=== PATIENT | female | born 1990 | race African-American/Black ===

== ENCOUNTER 2016-07-28 17:42 | Emergency (ER) | payer OTHER ==
[~2016-07-28] VITALS: Ht 172.7 cm; Wt 147.4 kg
[~2016-07-28 17:42] MED LIST: HYDROCORTISONE28 G1 TP; Ibuprofen PO; NIFE30TA2 PO; Oxycodone Hcl/Acetaminophen PO; PRED50TA PO
[2016-07-28 19:44] LABS: BILIRUBIN,URINE NEGATIVE (NEG); GLUCOSE,URINE NEGATIVE (NEG); NITRITE,URINE NEGATIVE (NEG); PH,URINE 6.5; PROTEIN,URINE NEGATIVE (NEG-TRACE)
[2016-07-28 19:57] LABS: BACTERIA,URINE MODERATE /HPF (0-FEW); RBC,URINE OCC /HPF (0-2)
[2016-07-28 19:58] LABS: SQUAMOUS EPITHELIAL CELL,UR FEW /LPF
[2016-07-28 20:04] LABS: BASO % 1 % (0-3); EOS % 2 % (0-3); HEMATOCRIT 27.5 % (36.0-47.0); HEMOGLOBIN 8.8 g/dL (12.0-15.5); LYMPH # 1.4 x10^3/uL (1.0-4.8); LYMPH % 23 % (24-48); MEAN CORPUSCULAR HEMOGLOBIN 21 pg (25-35); MEAN CORPUSCULAR HGB CONC 32 g/dL (31-37); MEAN CORPUSCULAR VOLUME 67 fL (79-100); MONO % 7 % (0-9); NEUT % 68 % (31-73); PLATELET COUNT 288 x10^3/uL (140-400); RED BLOOD COUNT 4.14 x10^6/uL (3.50-5.40); RED CELL DISTRIBUTION WIDTH 19.3 % (11.5-14.5); WHITE BLOOD COUNT 6.3 x10^3/uL (4.0-11.0)
[2016-07-28 20:20] LABS: CALCIUM 8.5 mg/dL (8.5-10.1); CREATININE 0.6 mg/dL (0.6-1.0); GFR 146.2; POTASSIUM 3.4 mmol/L (3.5-5.1)
[2016-07-28 20:25] LABS: ANISOCYTOSIS SLIGHT; HYPOCHROMIA MOD; MICROCYTOSIS MARKED; PLT ESTIMATE ADEQUATE (ADEQUATE); POLYCHROMASIA SLIGHT
[2016-07-28 20:27] LABS: ALBUMIN 2.8 g/dL (3.4-5.0); ALBUMIN/GLOBULIN RATIO 0.7 (1.0-1.7); TOTAL BILIRUBIN 0.2 mg/dL (0.2-1.0); TOTAL PROTEIN 6.8 g/dL (6.4-8.2)
--- NOTE | 2016-07-28 21:03 | RAD ---
Examination: Obstetric ultrasound less than 14 weeks History: Pelvic pain. COMPARISON None available. Findings : The uterus measures 10.0 x 8.4 x 7.9 centimeters. The right ovary, left ovary are not identified. Single intrauterine identified with heart rate of 162 beats per minute. The crown-rump length measures 6.7 centimeters corresponding to 13 weeks and 2 days. heart rate is 162 beats per minute. Estimated date of delivery by this ultrasound 01/31/2017. The biparietal diameter measures 2.11 centimeters corresponding to 13 weeks and 3 days +/-8 days. The head circumference measures 8.24 centimeters corresponding to 13 weeks and 4 days +/-8 days. The abdominal circumference measures 7.02 centimeter corresponding to 13 weeks and 4 days +/-12 days. The femur length measures 1.05 centimeters corresponding to 13 weeks and 1 day +/-10 days. Head circumference to abdominal circumference ratio 1.17. Femur length to biparietal diameter ratio of 49.8. Femur length to head circumference ratio 12.7. Femur length to abdominal circumference ratio 15.0. Placenta is in the posterior wall. Amniotic fluid is normal. IMPRESSION Single living intrauterine identified with heart rate of 162 beats per minute. Estimated delivery by this ultrasound 01/31/2017. Electronically signed by: Javid Julian (Jul 28, 2016 21:01:30)
[2016-07-28 21:30] VITALS: BP 179/72
[2016-07-28] MEDS ORDERED: NITR100C62 PO (22:12)
[2016-07-28] MEDS ORDERED: METR500T4 PO (22:12)
--- NOTE | 2016-07-28 22:12 | PHYS DOC ---
Past Medical History Past Medical History: No Pertinent History, Other Additional Past Medical Histor: PRE-DIABETIC Past Surgical History: Other Additional Past Surgical Histo: D & C Alcohol Use: None Drug Use: None Adult General Chief Complaint Chief Complaint: ABDOMINAL PAIN HPI HPI Patient is a 26 year old female who presents with abdominal pain. Patient reports today she has been having intermittent sharp pain in her lower abdomen that lasted a matter of minutes before going away. She is not having any pain at this time. No clear inciting or mitigating factors. No prior similar episodes. She has not taken anything for symptoms. She denies any urinary complaints. No vaginal bleeding or discharge. Of note, urine test positive. Patient reports she is now . She reports her last menstrual period in January, but she is irregular and did not think much of missing it. Review of Systems Review of Systems Constitutional: Denies fever or chills Respiratory: Denies cough or shortness of breath Cardiovascular: Denies chest pain GI: Intermittent sharp suprapubic pain. Denies nausea, vomiting, bloody stools or diarrhea : Denies dysuria or hematuria Musculoskeletal: Denies back pain or joint pain Integument: Denies rash or skin lesions Neurologic: Denies headache, focal weakness or sensory changes Allergies Allergies Allergies Coded Allergies Type Severity Reaction Last Updated Verified No Known Drug Allergies 03/22/13 No Physical Exam Physical Exam Constitutional: Well developed, well nourished, no acute distress, non-toxic appearance Neck: Normal range of motion, no stridor Cardiovascular: Heart rate normal, regular rhythm, no murmur Lungs & Thorax: Bilateral breath sounds clear to auscultation Abdomen: Bowel sounds normal, soft, non-distended, no TTP Pelvic: Scant thin white discharge, no blood, no CMT or adnexal tenderness Skin: Warm, dry, no erythema, no rash Extremities: No obvious deformity, no edema Neurologic: Alert and oriented X 3, no gross deficits noted Psychologic: Affect normal, judgement normal, mood normal Current Patient Data Vital Signs Vital Signs Date Time Temp Pulse Resp B/P Pulse Ox O2 Delivery O2 Flow Rate FiO2 07/28/16 21:30 78 20 179/72 100 Room Air 07/28/16 18:11 98.2 98.2 Lab Values Laboratory Tests Test 07/28/16 17:51 07/28/16 18:47 07/28/16 19:55 POC Urine HCG, Qualitative Hcg positive (Negative) Urine Collection Type Unknown Urine Color Yellow Urine Clarity Clear Urine pH 6.5 Urine Specific [place] 1.025 Urine Protein Negativemg/dL (NEG-TRACE) Urine Glucose (UA) Negativemg/dL (NEG) Urine Ketones (Stick) Negativemg/dL (NEG) Urine Blood Negative (NEG) Urine Nitrite Negative (NEG) Urine Bilirubin Negative (NEG) Urine Urobilinogen Dipstick 1.0mg/dL (0.2 mg/dL) Urine Leukocyte Esterase Negative (NEG) Urine RBC Occ/HPF (0-2) Urine WBC 1-4/HPF (0-4) Urine Squamous Epithelial Cells Few/LPF Urine Bacteria Moderate/HPF (0-FEW) Urine Mucus Marked/LPF White Blood Count 6.3x10^3/uL (4.0-11.0) Red Blood Count 4.14x10^6/uL (3.50-5.40) Hemoglobin 8.8g/dL (12.0-15.5) L Hematocrit 27.5% (36.0-47.0) L Mean Corpuscular Volume 67fL (79-100) L Mean Corpuscular Hemoglobin 21pg (25-35) L Mean Corpuscular Hemoglobin Concent 32g/dL (31-37) Red Cell Distribution Width 19.3% (11.5-14.5) H Platelet Count 288x10^3/uL (140-400) Neutrophils (%) (Auto) 68% (31-73) Lymphocytes (%) (Auto) 23% (24-48) L Monocytes (%) (Auto) 7% (0-9) Eosinophils (%) (Auto) 2% (0-3) Basophils (%) (Auto) 1% (0-3) Neutrophils # (Auto) 4.3x10^3uL (1.8-7.7) Lymphocytes # (Auto) 1.4x10^3/uL (1.0-4.8) Monocytes # (Auto) 0.5x10^3/uL (0.0-1.1) Eosinophils # (Auto) 0.1x10^3/uL (0.0-0.7) Basophils # (Auto) 0.0x10^3/uL (0.0-0.2) Platelet Estimate Adequate (ADEQUATE) Polychromasia Slight Hypochromasia Mod Anisocytosis Slight Microcytosis Marked Maternal Serum HCG Beta Subunit 98631sSP/mL (0-6) H Sodium Level 137mmol/L (136-145) Potassium Level 3.4mmol/L (3.5-5.1) L Chloride Level 103mmol/L (98-107) Carbon Dioxide Level 25mmol/L (21-32) Anion Gap 9 (6-14) Blood Urea Nitrogen 7mg/dL (7-20) Creatinine 0.6mg/dL (0.6-1.0) Estimated GFR (Cockcroft-Gault) 146.2 BUN/Creatinine Ratio 12 (6-20) Glucose Level 91mg/dL (70-99) Calcium Level 8.5mg/dL (8.5-10.1) Total Bilirubin 0.2mg/dL (0.2-1.0) Aspartate Amino Transferase (AST) 13U/L (15-37) L Alanine Aminotransferase (ALT) 13U/L (14-59) L Alkaline Phosphatase 61U/L (46-116) Total Protein 6.8g/dL (6.4-8.2) Albumin 2.8g/dL (3.4-5.0) L Albumin/Globulin Ratio 0.7 (1.0-1.7) L Laboratory Tests 07/28/16 19:55 Laboratory Tests 07/28/16 19:55 Microbiology 07/28/16 Wet Prep - Final, Complete EKG EKG [] Radiology/Procedures Radiology/Procedures Pelvic US: IMPRESSION Single living intrauterine identified with heart rate of 162 beats per minute. Estimated delivery by this ultrasound 01/31/2017. Course & Med Decision Making Course & Med Decision Making Pertinent Labs and Imaging studies reviewed. (See chart for details) Patient is 26-year-old female who presents with intermittent lower abdominal pain. Urine test positive. Pelvic exam performed, swabs sent to lab. Ultrasound ordered. Labs notable for asymptomatic bacteriuria, clue cells on wet prep. Discussed with patient. Will discharge with prescription for Macrobid and Flagyl, instructions for follow-up with [facility], return precautions. Dragon Disclaimer Dragon Disclaimer This electronic medical record was generated, in whole or in part, using a voice recognition dictation system. Departure Departure Impression: Primary Impression: Abdominal pain during Additional Impression: Bacterial vaginosis Disposition: 01 HOME, SELF-CARE Condition: STABLE Referrals: MEGAN DUTTON Jr, MD Patient Instructions: Abdominal Pain During , Bacterial Vaginosis Additional Instructions: Thank you for allowing us to provide care today in the Emergency Department. Your evaluation showed that you are . The measurements from your ultrasound showed that you are about 13 weeks and 2 days . This gives a due date of 01/31/2017. Take the provided medication as directed. Schedule a follow up appointment with your ObGyn. Return promptly to the Emergency Department if you develop any new or concerning symptoms. Scripts Metronidazole 500 Mg Tablet1 Tab PO BID #14 TAB Prov:TAYLOR OROZCO MD 07/28/16 Nitrofurantoin Monohyd/M-Cryst (Macrobid 100 Mg Capsule)100 Mg Capsule1 Cap PO BID #10 CAP Prov:TAYLOR OROZCO MD 07/28/16 Problem Qualifiers TAYLOR OROZCO MD Jul 28, 2016 22:12
== END 2016-07-28 22:25 | disposition home or self-care (01) ==
LOC: ER 17:42
DX: O23.591 Infection of other part of genital tract in pregnancy, first trimester (principal); N76.0 Acute vaginitis; Z3A.13 13 weeks gestation of pregnancy
CPT/HCPCS: 36415; 76801; 76817; 80053; 81001; 81025; 84702; 85007; 85027; 87086; 87491; 87591; 99285; Q0111

== ENCOUNTER → 2016-09-26 | Outpatient (CLI) | payer OTHER ==
[~2016-09-26] MED LIST changes: +METR500T8 PO; +NITR100C62 PO
--- NOTE | 2016-09-26 16:13 | RAD ---
Indication assess normal . Obstetrical ultrasound examination was performed. Note is made of a previous examination 07/28/2016 The study is significantly limited secondary to patient body habitus. The survey was limited again secondary to patient body habitus. A single viable IUP was identified. heart rate 168 documented. The placenta appears posterior. The amount of amniotic fluid appears normal. No gross anomalies were seen but a 4 chambered heart could not be confirmed and there was limited evaluation of the head. The current presentation is transverse. Biparietal diameter of 5.1 cm, head circumference of 18.9 cm, abdominal circumference of 16.1 cm and femoral length of 3.7 cm are compatible with a gestational age of approximately 21 weeks 3 days. By sonographic analysis the expected date of confinement is 02/03/2017. The estimated maternal cervical length is 3 cm. IMPRESSION: Single viable intrauterine fetus of approximately 21 weeks 3 days gestation. Limited survey. No definite anomaly seen Maternal cervix approximately 3 cm in length
== END | disposition home or self-care (01) ==
LOC: US 14:29
PROVIDERS: ATTEND Obstetrics & Gynecology
DX: O09.822 Supervision of pregnancy with history of in utero procedure during previous pregnancy, second trimester (principal); O99.212 Obesity complicating pregnancy, second trimester; Z3A.21 21 weeks gestation of pregnancy
CPT/HCPCS: 76805

== ENCOUNTER 2017-01-06 08:32 | Observation (INO) | payer OTHER ==
[2017-01-06] MEDS ORDERED: ACETAMINOPHEN 325 MG TABLET. PO PRN (10:45)
[2017-01-06] MEDS ORDERED: ACETAMINOPHEN 500 MG TABLET PO PRN (11:15)
== END 2017-01-06 11:42 | disposition home or self-care (01) ==
LOC: 3 SO LND 08:32
PROVIDERS: ADMIT Obstetrics & Gynecology; ATTEND Obstetrics & Gynecology
DX: O26.893 Other specified pregnancy related conditions, third trimester (principal); R10.30 Lower abdominal pain, unspecified; Z3A.36 36 weeks gestation of pregnancy
CPT/HCPCS: G0378; G0379

== ENCOUNTER 2017-01-09 14:57 | Inpatient (IN) | payer OTHER ==
[2017-01-09] VITALS (7 sets, daily range): BP systolic 115–164; BP diastolic 62–94
[~2017-01-09] VITALS: Ht 177.8 cm; Wt 155.1 kg
--- NOTE | 2017-01-09 17:44 | PDOC1 ---
OB - History Hx of Present Care: Good Care Ultrasounds: Normal mid trimester US Obstetrical Complications: None Medical Complications: Other (Severe Chronic blood loss anemia) Past Family/Social History * Past Medical, Surgical, Family and Obstetric Histories reviewed from chart. Rubella: Immune RPR/VDRL: Negative GBS Status: Unknown HBsAG: Negative OB - Chief Complaint & HPI Date of Admission: Date of Admission: Jan 09, 2017 at 14:57 Chief Complaint/History : 2 Para: 1 EGA: 37 Reason for admission: observation, other (Severe chronic blood loss anemia) Admission Nurse Assessment Rev: Yes Problems: OB - Admission Exam Physical Exam HEENT: Normal Heart: Regular Rate Lungs: Clear Abdomen: Gravid, Non tender, Soft Extremities: Edema Reflexes: Normal Cervical Dilatation: None Effacement: 25% Station: -3 Membranes: Intact Heart Rate: Normal Accelerations: Accelerations Present Decelerations: No decelerations Contractions on Admission: >10 Minutes Apart Intensity: Mild Text A: 37 wks IUP Previous c/s Severe Chronic blood loss anemia of hgb 6.8 P: Admit for transfusion 3 Units PRBC's. Recheck H&H 4 hours after transfusion complete. MEGAN DUTTON Jr, MD Jan 09, 2017 17:44
[2017-01-09] MEDS: IV NORMAL SALINE 1000ML BAG 1,000 ML IV SCH (18:21)
[2017-01-10 05:47] LABS: HEMATOCRIT 25.1 % (36.0-47.0); HEMOGLOBIN 7.7 g/dL (12.0-15.5)
--- NOTE | 2017-01-10 08:00 | PDOC ---
OB Progress Note Date of Service 01/10/17 Time of Evaluation 0750 Notes Pt. feeling better s/p transfusion 2 Units PRBC's. pt. will receive 2 additional units PRBC's since hgb only 7 after 2 units. Pt. counseled on risks of additional blood transfusion at time of c/s and possible hysterectomy for severe bleeding. Pt. strongly encouraged to take iron TID. Lab Laboratory Tests Test 01/10/17 05:00 Hemoglobin 7.7 g/dL (12.0-15.5) Hematocrit 25.1 % (36.0-47.0) Laboratory Tests Test 01/10/17 05:00 Hemoglobin 7.7 g/dL (12.0-15.5) Hematocrit 25.1 % (36.0-47.0) Medications Current Medications Sodium Chloride 1,000 ml @ 125 mls/hr Q8H IV Last administered on 01/09/17t 18 :21; Start 01/09/17 at 16:12 Active Scripts Active Metronidazole 500 Mg Tablet 1 Tab PO BID Macrobid 100 Mg Capsule (Nitrofurantoin Monohyd/M-Cryst) 100 Mg Capsule 1 Cap PO BID [Oxycodone Hcl/Acetaminophen] 1 TAB Tablet 2 Tab PO PRN Q4HRS PRN [Ibuprofen] 800 MG Tablet 800 Mg PO PRN Q6HRS PRN Hydrocortisone 1% Ointment (Hydrocortisone/Aloe Vera) 28 Gm Oint...g. 28 Gm TP PRN BID 30 Days rash Prednisone 50 Mg Tablet 50 Mg PO DAILY 5 Days Reported Procardia Xl (Nifedipine) 30 Mg Tab.er.24 30 Mg PO DAILY Assessment 37 wks IUP Severe Chronic blood loss anemia Plan of Care: See new orders (Check H&H after next 2 units, then d/c home.) MEGAN DUTTON Jr, MD Jan 10, 2017 08:00
--- NOTE | 2017-01-10 08:00 | DISCH ---
DISCHARGE INSTRUCTIONS Condition on Discharge Condition on Discharge: Stable Activity After Discharge Activity Instructions for Disc: Activity as tolerated Lifting Instructions after Dis: No heavy lifting Diet after Discharge Diet after Discharge: Regular Contacting the DRCamron after DC Call your doctor for: Concerns you may have Follow-Up Follow up with: Dr. Ghosh in 1 week. MEGAN GHOSH Jr, MD Jan 10, 2017 08:00
[2017-01-10 08:19] VITALS: BP 108/57
[2017-01-10 10:10] VITALS: BP 123/58
[2017-01-10] MEDS: IV NORMAL SALINE 1000ML BAG 1,000 ML IV SCH (10:33)
[2017-01-10 10:46] VITALS: BP 118/68
[2017-01-10 11:26] VITALS: BP 121/71
[2017-01-10 11:27] VITALS: BP 121/71
[2017-01-10 12:39] VITALS: BP 101/57
[2017-01-10 16:55] LABS: HEMATOCRIT 29.4 % (36.0-47.0); HEMOGLOBIN 9.4 g/dL (12.0-15.5)
[2017-01-30] MEDS ORDERED: DOCU-109 PO (13:23)
[2017-01-30] MEDS ORDERED: OXYC-323 PO (13:23)
[2017-01-30] MEDS ORDERED: IBUP-1060 PO (13:23)
== END 2017-01-10 19:20 | disposition home or self-care (01) | DRG 781 ==
LOC: 3 SO LND 14:57 → OBSVTOIN 16:18
PROVIDERS: ADMIT Obstetrics & Gynecology; ATTEND Obstetrics & Gynecology
PROC: 30233N1 Transfusion of Nonautologous Red Blood Cells into Peripheral Vein, Percutaneous Approach (ICD-10-PCS; principal; 2017-01-09)
DX: O99.013 Anemia complicating pregnancy, third trimester (principal); O34.211 Maternal care for low transverse scar from previous cesarean delivery; D50.0 Iron deficiency anemia secondary to blood loss (chronic); Z3A.37 37 weeks gestation of pregnancy
CPT/HCPCS: 36415; 85014; 85018; 86850; 86900; 86901; 86920; G0379; J7030; P9016

== ENCOUNTER 2017-05-22 10:36 | Emergency (ER) | payer SELFPAY, OTHER | END 2017-05-22 12:22 | disposition home or self-care (01) | LOC: ER 10:36 | DX: S39.012A Strain of muscle, fascia and tendon of lower back, initial encounter (principal); W19.XXXA Unspecified fall, initial encounter; Y93.89 Activity, other specified; Y92.89 Other specified places as the place of occurrence of the external cause; Y99.8 Other external cause status | CPT/HCPCS: 99283 ==

== ENCOUNTER → 2020-02-11 | Outpatient (CLI) | payer SELFPAY ==
[2017-05-22 11:15] VITALS: BP 139/67
[~2020-02-11] MED LIST changes: +CYCL5TAB PO; +DOCU-109 PO; +IBUP-1060 PO; +METR-34 PO; -METR500T8 PO; +OXYC1TAB15 PO
--- NOTE | 2020-02-11 15:09 | RAD ---
EXAM: Obstetrics sonogram. HISTORY: Size and dates discrepancy. TECHNIQUE: Sonographic imaging of a gravid uterus was performed. COMPARISON: None. FINDINGS: There is a single intrauterine fetus in cephalic presentation with a normal heart rate of 149 bpm. There is a three-vessel umbilical cord with normal insertion. There is a posterior placenta without evidence of placenta previa. The amniotic fluid index is normal at 11.7 cm. The cervix is closed and measures 5.0 cm in length. The anatomy is not well seen due to positioning and maternal body habitus. There is a four-chamber heart. The kidneys, stomach, spine, brain, and extremities are grossly unremarkable. The facial profile, kidneys and the umbilical cord insertion are not well seen. The biparietal diameter is 4.77 cm, corresponding with a gestational age of 20 weeks and 3 days. The head circumference is 17.95 cm, corresponding with 20 weeks and 3 days. The abdominal circumference is 15.7 cm, corresponding to 20 weeks and 3 days. The femoral length is 3.28 cm, corresponding with 20 weeks and 2 days. The estimated gestational age based on combined ultrasound measurements is 20 weeks and 3 days and the estimated weight is 347 g. IMPRESSION: 1. Single intrauterine fetus with normal heart rate and gestational age based on ultrasound measurements of 20 weeks and 3 days. 2. Suboptimal evaluation of the anatomy due to presentation and maternal body habitus. The facial profile, kidneys and the endotracheal cord insertion are not well seen. Electronically signed by: Christine Penaloza MD (02/11/2020 3:06 PM) [id number]
== END ==
LOC: US 12:22
PROVIDERS: ATTEND Obstetrics & Gynecology
DX: O26.842 Uterine size-date discrepancy, second trimester (principal); Z3A.20 20 weeks gestation of pregnancy
CPT/HCPCS: 76805

== ENCOUNTER 2020-03-17 15:41 | Emergency (ER) | payer MEDICAID ==
[~2020-03-17] VITALS: Ht 177.8 cm; Wt 158.8 kg
[~2020-03-17 15:41] MED LIST changes: +FERR325T14 PO; +ONDA4TAB7 PO
[2020-03-17 15:53] VITALS: BP 133/83
--- NOTE | 2020-03-17 16:35 | PHYS DOC ---
Past Medical History Past Medical History: Other Additional Past Medical Histor: PRE-DIABETIC, 21 WEEK Past Surgical History: , Other Additional Past Surgical Histo: D&C Smoking Status: Never Smoker Alcohol Use: None Drug Use: None General Adult EDM: Chief Complaint: COUGH HPI: HPI: 29-year-old female who has a cough and recent covid 19 exposure is wanting for a test. She is about 25 weeks . She denies any abdominal pain or vaginal bleeding or any related complaints. Her cough is nonproductive. She has had headache with it. ros: She denies fevers vomiting or chills. Negative for chest pain. All other review of systems negative. ED course: 29-year-old female seeking a COVID-19 test. Patient was tested saturations within normal limits and she is well-appearing with normal physical examination. Will discharge to follow-up with her PCP in 1 to 2 days. She is to return for any worsening concerns or symptoms. Heart Score: Risk Factors: Risk Factors: DM, Current or recent (<one month) smoker, HTN, HLP, family history of CAD, obesity. Risk Scores: Score 0 - 3: 2.5% MACE over next 6 weeks - Discharge Home Score 4 - 6: 20.3% MACE over next 6 weeks - Admit for Clinical Observation Score 7 - 10: 72.7% MACE over next 6 weeks - Early Invasive Strategies Allergies: Allergies: Allergies Coded Allergies Type Severity Reaction Last Updated Verified No Known Drug Allergies 01/27/17 No Physical Exam: PE: Constitutional: Well developed, well nourished, no acute distress, non-toxic appearance. [] HENT: Normocephalic, atraumatic, bilateral external ears normal, oropharynx moist, no oral exudates, nose normal. [] Eyes: PERRLA, EOMI, conjunctiva normal, no discharge. [] Neck: Normal range of motion, no tenderness, supple, no stridor. [] Cardiovascular:Heart rate regular rhythm, no murmur [] Lungs & Thorax: Bilateral breath sounds clear to auscultation [] Abdomen: Bowel sounds normal, soft, no tenderness, no masses, no pulsatile masses. [] Skin: Warm, dry, no erythema, no rash. [] Back: No tenderness, no CVA tenderness. [] Extremities: No tenderness, no cyanosis, no clubbing, ROM intact, no edema. [] Neurologic: Alert and oriented X 3, normal motor function, normal sensory function, no focal deficits noted. [] Psychologic: Affect normal, judgement normal, mood normal. [] Current Patient Data: Vital Signs: Vital Signs Date Time Temp Pulse Resp B/P (MAP) Pulse Ox O2 Delivery O2 Flow Rate FiO2 03/17/20 15:53 99.0 104 18 133/83 (100) 100 Room Air 99.0 EKG: EKG: [] Radiology/Procedures: Radiology/Procedures: [] Course & Med Decision Making: Course & Med Decision Making Pertinent Labs and Imaging studies reviewed. (See chart for details) [] Dragon Disclaimer: [employer] Disclaimer: This electronic medical record was generated, in whole or in part, using a voice recognition dictation system. Departure Departure Impression: Primary Impression: Cough Disposition: 01 DC HOME SELF CARE/HOMELESS Condition: STABLE Referrals: NO PCP (PCP) Additional Instructions: You have been tested for or diagnosed with COVID-19. It is an infection caused by a new type of coronavirus. COVID-19 will cause cold-like or mild flu symptoms in most. It can cause more severe symptoms like problems breathing in some. There is no treatment for COVID-19. The body will clear the infection over time. Self-care will help to ease discomfort. Steps to Take: Self-Care Rest as needed. Healthy habits may help you feel better. Steps include: Choose healthy foods including fruits and vegetables. Drink water throughout the day. Get plenty of sleep each night. If you smoke, try to quit. It may ease breathing. Avoid alcohol. Keep Others Healthy The virus can spread to others. Droplets are released every time you sneeze or cough. The droplets can get into the mouth, nose, or eyes of people near you and lead to infection. To lower the chances of spreading COVID-19 to others: Stay at home until your doctor has said it is safe to leave. If you tested positive this will mean staying isolated until both of the following are true: At least 7 days have passed since the start of illness. You are free of fever for at least 72 hours without the use of medicine. During this time: - Avoid public areas, events, or transportation. Do not return to work or school until your doctor has said it is safe to do so. - Call ahead if you need to go to a medical center. Let them know you may have COVID-19. It will help them guide you where to go. They may also ask you to wear a facemask when you come to the office. - If you call for emergency medical services, let them know you may have COVID- 19. While at home: - Try to avoid close contact with others. Stay about 6 feet away. - If possible, spend most of your time in a separate room from others. - Use a face mask if you will be in close contact with others such as sharing a room or vehicle. - Have someone wipe down common surfaces in the home. Use household chancellor every day on areas like doorknobs, counters, or sinks. - Cough or sneeze into a tissue. Throw the tissue away right after use. If a tissue is not available, cough or sneeze into your elbow. - Wash your hands often. Wash them after sneezing or coughing. Use soap and water and wash for at least 20 seconds. Alcohol based hand car cleaner can be used if soap and water is not available. - Do not prepare food for others. Avoid sharing personal items like forks, spoons, or toothbrushes. - Avoid close contact with pets while you are sick. There is no evidence of the virus passing to pets. This is a safety step until more is known about this virus. Isolation can be frustrating. Social interaction can help. Keep in touch with friends and family through phone and tech options. You can still interact with others in your home, just keep a safe distance of about 6 feet. Follow-up: Your doctors office will check in with you to see if there are any changes in your health. You may be asked to keep track of symptoms to share with them. They will also let you know when you are clear to be in public again. Problems to Look Out For: Contact your doctor if your recovery is not going as you expect. Get emergency care if you have problems such as: - Trouble breathing - Nonstop chest pain or pressure - Changes in awareness, confusion, or problems waking - Lips or face have bluish color - Worsening of symptoms If you think you have an emergency, call for emergency medical services right away. [facility] Mar 17, 2020 16:35
--- NOTE | 2020-03-19 13:40 | NUR ---
IP: Informed pt of negative COVID test. Pt verbalized understanding.
== END 2020-03-17 16:37 | disposition home or self-care (01) ==
LOC: ER 15:41
DX: O26.892 Other specified pregnancy related conditions, second trimester (principal); R05 Cough; Z20.828 Contact with and (suspected) exposure to other viral communicable diseases; R51.9 Headache, unspecified; Z98.890 Other specified postprocedural states; Z3A.25 25 weeks gestation of pregnancy
CPT/HCPCS: 99283; C9803; U0003

== ENCOUNTER 2020-04-21 13:23 | Observation (INO) | payer MEDICAID ==
[~2020-04-21] VITALS: Ht 176.5 cm; Wt 159.7 kg
[2020-04-21] MEDS ORDERED: ACETAMINOPHEN 325 MG TABLET. PO PRN (14:30)
[2020-04-21] MEDS ORDERED: IV NORMAL SALINE 1000ML BAG 1,000 ML IV SCH (14:30)
[2020-04-21] MEDS ORDERED: 0.9 % SODIUM CHLORIDE 10 ML DISP.SYRIN. IV PRN (14:30)
[2020-04-21 14:35] VITALS: BP 120/69
[2020-04-21 16:00] VITALS: BP 120/61
[2020-04-21 18:26] VITALS: BP 118/71
[2020-04-21 19:45] VITALS: BP 103/55
[2020-04-21 22:07] VITALS: BP 101/58
[2020-04-22 09:50] LABS: BASO % 0 % (0-3); EOS # 0.1 x10^3/uL (0.0-0.7); EOS % 1 % (0-3); HEMATOCRIT 24.9 % (36.0-47.0); HEMOGLOBIN 7.5 g/dL (12.0-15.5); LYMPH # 1.3 x10^3/uL (1.0-4.8); LYMPH % 17 % (24-48); MEAN CORPUSCULAR HEMOGLOBIN 18 pg (25-35); MEAN CORPUSCULAR HGB CONC 30 g/dL (31-37); MEAN CORPUSCULAR VOLUME 60 fL (79-100); MONO # 0.4 x10^3/uL (0.0-1.1); MONO % 5 % (0-9); NEUT # 5.6 x10^3/uL (1.8-7.7); NEUT % 76 % (31-73); PLATELET COUNT 249 x10^3/uL (140-400); RED BLOOD COUNT 4.13 x10^6/uL (3.50-5.40); RED CELL DISTRIBUTION WIDTH 25.3 % (11.5-14.5); WHITE BLOOD COUNT 7.4 x10^3/uL (4.0-11.0)
--- NOTE | 2020-04-22 10:42 | PDOC1 ---
OB - History Hx of Present Care: Good Care Ultrasounds: Normal mid trimester US Obstetrical Complications: None Medical Complications: Other (severe anemia) Past Family/Social History * Past Medical, Surgical, Family and Obstetric Histories reviewed from chart. Rubella: Immune RPR/VDRL: Negative GBS Status: Unknown HBsAG: Negative OB - Chief Complaint & HPI Date of Admission: Date of Admission: Apr 21, 2020 at 13:23 Chief Complaint/History : 4 Para: 2 EGA: 28 Reason for admission: other (severe anemia) Admission Nurse Assessment Rev: Yes OB - Admission Exam Physical Exam Vitals: VS - Last 72 Hours, by Label Date Time Temp Pulse Resp B/P (MAP) Pulse Ox O2 Delivery O2 Flow Rate FiO2 04/21/20 22:07 98.7 75 18 101/58 98.7 04/21/20 19:45 99.0 100 18 103/55 99.0 04/21/20 18:26 98.4 95 20 118/71 98.4 04/21/20 16:00 98.4 116 18 120/61 98.4 04/21/20 14:35 98.5 102 20 120/69 (86) 98.5 HEENT: Normal Heart: Regular Rate Lungs: Clear Abdomen: Gravid, Non tender, Soft Extremities: Edema Reflexes: Normal Cervical Dilatation: None Effacement: 0% Station: Ballotable Membranes: Intact Heart Rate: Normal Accelerations: Accelerations Present Decelerations: No decelerations Contractions on Admission: None Text A: 28 wks IUP Severe anemia P: Observation for transfusion of 2 Units PRBC's. Repeat CBC in am. Pt. currently taking iron BID. Will arrange for Venofer outpatient to further treat severe anemia. Plan for d/c home in am. NST daily. This will serve as H&P and short stay summary. MEGAN DUTTON Jr, MD Apr 22, 2020 10:42
[2020-04-22 12:25] LABS: PLT ESTIMATE ADEQUATE (ADEQUATE)
[2020-04-22 12:26] LABS: ANISOCYTOSIS MOD; HYPOCHROMIA MARKED; MICROCYTOSIS MARKED; POLYCHROMASIA PRESENT
== END 2020-04-22 11:15 | disposition home or self-care (01) ==
LOC: 3 SO LND 13:23
PROVIDERS: ADMIT Obstetrics & Gynecology; ATTEND Obstetrics & Gynecology
DX: O99.013 Anemia complicating pregnancy, third trimester (principal); D64.9 Anemia, unspecified; Z3A.28 28 weeks gestation of pregnancy
CPT/HCPCS: 36415; 36430; 85025; 86850; 86900; 86901; 86920; G0378; G0379; P9016; 59025

== ENCOUNTER → 2020-04-21 | Outpatient (CLI) | payer MEDICAID ==
[2020-04-21 12:14] LABS: BASO % 0 % (0-3); EOS # 0.1 x10^3/uL (0.0-0.7); EOS % 1 % (0-3); HEMATOCRIT 22.5 % (36.0-47.0); LYMPH # 1.3 x10^3/uL (1.0-4.8); LYMPH % 15 % (24-48); MEAN CORPUSCULAR HEMOGLOBIN 17 pg (25-35); MEAN CORPUSCULAR HGB CONC 30 g/dL (31-37); MEAN CORPUSCULAR VOLUME 57 fL (79-100); MONO # 0.3 x10^3/uL (0.0-1.1); MONO % 4 % (0-9); NEUT # 6.9 x10^3/uL (1.8-7.7); NEUT % 80 % (31-73); PLATELET COUNT 289 x10^3/uL (140-400); RED BLOOD COUNT 3.95 x10^6/uL (3.50-5.40); RED CELL DISTRIBUTION WIDTH 22.6 % (11.5-14.5); WHITE BLOOD COUNT 8.7 x10^3/uL (4.0-11.0)
[2020-04-21 12:30] LABS: HEMOGLOBIN 6.8 g/dL (12.0-15.5)
== END ==
LOC: LAB 10:32
PROVIDERS: ATTEND Obstetrics & Gynecology
DX: O09.93 Supervision of high risk pregnancy, unspecified, third trimester (principal); Z3A.29 29 weeks gestation of pregnancy
CPT/HCPCS: 36415; 82950; 85025

== ENCOUNTER → 2020-04-27 | Outpatient (CLI) | payer MEDICAID ==
[2020-04-21 22:07] VITALS: BP 101/58
== END ==
LOC: LAB 09:15
PROVIDERS: ATTEND Obstetrics & Gynecology
DX: O09.93 Supervision of high risk pregnancy, unspecified, third trimester (principal); Z3A.30 30 weeks gestation of pregnancy
CPT/HCPCS: 36415; 82947; 82950

== ENCOUNTER 2020-05-04 12:13 | Observation (INO) | payer MEDICAID ==
[2020-05-04] MEDS ORDERED: IV RINGERS,LACTATED 1000ML 1,000 ML IV SCH (13:00)
[2020-05-04 13:08] LABS: BILIRUBIN,URINE SMALL (NEG); CLARITY,URINE CLEAR; COLOR,URINE AMBER; NITRITE,URINE NEGATIVE (NEG); PH,URINE 6.5 (<5.0-8.0); PROTEIN,URINE NEGATIVE (NEG-TRACE)
[2020-05-04 13:23] LABS: BACTERIA,URINE FEW /HPF (0-FEW); RBC,URINE 0 /HPF (0-2)
[2020-05-04 14:58] LABS: BASO % 0 % (0-3); EOS % 1 % (0-3); HEMATOCRIT 25.9 % (36.0-47.0); LYMPH # 1.1 x10^3/uL (1.0-4.8); LYMPH % 15 % (24-48); MEAN CORPUSCULAR HEMOGLOBIN 19 pg (25-35); MEAN CORPUSCULAR HGB CONC 31 g/dL (31-37); MEAN CORPUSCULAR VOLUME 61 fL (79-100); MONO # 0.4 x10^3/uL (0.0-1.1); MONO % 6 % (0-9); NEUT # 5.7 x10^3/uL (1.8-7.7); NEUT % 78 % (31-73); PLATELET COUNT 275 x10^3/uL (140-400); RED BLOOD COUNT 4.25 x10^6/uL (3.50-5.40); RED CELL DISTRIBUTION WIDTH 26.3 % (11.5-14.5); WHITE BLOOD COUNT 7.3 x10^3/uL (4.0-11.0)
[2020-05-04 15:55] LABS: ANISOCYTOSIS MARKED; HYPOCHROMIA MARKED; MICROCYTOSIS MARKED; PLT ESTIMATE ADEQUATE (ADEQUATE); POIKILOCYTOSIS MOD
[2020-05-04 15:56] LABS: OVALOCYTES FEW; POLYCHROMASIA PRESENT
== END 2020-05-04 16:07 | disposition home or self-care (01) ==
LOC: 3 SO LND 12:13
PROVIDERS: ADMIT Obstetrics & Gynecology; ATTEND Obstetrics & Gynecology
DX: O26.893 Other specified pregnancy related conditions, third trimester (principal); R10.2 Pelvic and perineal pain; Z3A.31 31 weeks gestation of pregnancy; Z98.891 History of uterine scar from previous surgery
CPT/HCPCS: 36415; 59025; 81001; 85025; G0378; G0379

== ENCOUNTER 2020-06-12 13:33 | Observation (INO) | payer MEDICAID ==
[2020-06-12] MEDS ORDERED: ACETAMINOPHEN 325 MG TABLET. PO PRN (14:00)
[2020-06-12] MEDS ORDERED: ONDANSETRON PF 4 MG/2 ML VIAL. IVP PRN (14:00)
[2020-06-12] MEDS ORDERED: IV RINGERS,LACTATED 1000ML 1,000 ML IV SCH (14:00)
[2020-06-12 14:50] LABS: BILIRUBIN,URINE NEGATIVE (NEG); CLARITY,URINE CLEAR; COLOR,URINE YELLOW; NITRITE,URINE NEGATIVE (NEG); PH,URINE 6.5 (<5.0-8.0); PROTEIN,URINE NEGATIVE (NEG-TRACE)
[2020-06-12 15:08] LABS: BACTERIA,URINE FEW /HPF (0-FEW); WBC,URINE RARE /HPF (0-4)
[2020-06-12 15:33] LABS: BASO % 0 % (0-3); EOS # 0.1 x10^3/uL (0.0-0.7); EOS % 1 % (0-3); HEMATOCRIT 26.4 % (36.0-47.0); LYMPH # 1.2 x10^3/uL (1.0-4.8); LYMPH % 14 % (24-48); MEAN CORPUSCULAR HEMOGLOBIN 19 pg (25-35); MEAN CORPUSCULAR HGB CONC 30 g/dL (31-37); MEAN CORPUSCULAR VOLUME 62 fL (79-100); MONO # 0.5 x10^3/uL (0.0-1.1); MONO % 6 % (0-9); NEUT # 6.7 x10^3/uL (1.8-7.7); NEUT % 79 % (31-73); PLATELET COUNT 310 x10^3/uL (140-400); RED BLOOD COUNT 4.24 x10^6/uL (3.50-5.40); RED CELL DISTRIBUTION WIDTH 24.5 % (11.5-14.5); WHITE BLOOD COUNT 8.4 x10^3/uL (4.0-11.0)
[2020-06-12 16:37] LABS: ANISOCYTOSIS MOD; HYPOCHROMIA MOD; MICROCYTOSIS MOD; OVALOCYTES FEW; PLT ESTIMATE ADEQUATE (ADEQUATE); POIKILOCYTOSIS SLIGHT; POLYCHROMASIA SLIGHT
--- NOTE | 2020-06-12 16:45 | RAD ---
EXAM: Obstetrics sonogram. HISTORY: growth and amniotic fluid index assessment. TECHNIQUE: Sonographic imaging of a gravid uterus was performed. COMPARISON: 02/17/2020. FINDINGS: There is a single fetus in cephalic presentation with a normal heart rate of 141 bpm. There is a posterior grade 2 placenta without evidence of placenta previa. The anterior fluid index is nor mal at 15.5 cm. The biparietal diameter is 9.54 cm, corresponding with 39 weeks and 0 days. The head circumference is 33.69 cm, corresponding with 38 weeks and 4 days. The abdominal sequential 34.75 cm, corresponding with 38 weeks and 5 days. The femoral length is 7.42 cm, corresponding to 38 weeks and 0 days. The estimated gestational age based on combined ultrasound measurements is 38 weeks and 4 da ys and the estimated weight is 3521 g. The estimated due date is 06/22/2020. The head circ umference to abdominal sequential ratio is 0.87. The cervix is closed and measures 5.6 cm in length. IMPRESSION: 1. Single intrauterine fetus in cephalic presentation with normal heart rate and gestational age base d on ultrasound measurements of 30 weeks and 4 days. The estimated weight is at the 69th percen tile for the gestational age of 37 weeks and 6 days based on LMP. 2. Normal TERENCE of 15.5 cm. 3. Note is made that the anatomy is not formally assessed on this exam. Electronically signed by: Christine Penaloza MD (06/12/2020 4:43 PM) [id number]
== END 2020-06-12 16:00 | disposition home or self-care (01) ==
LOC: 3 SO LND 13:33
PROVIDERS: ADMIT Obstetrics & Gynecology; ATTEND Obstetrics & Gynecology
DX: O26.893 Other specified pregnancy related conditions, third trimester (principal); R10.2 Pelvic and perineal pain; Z3A.36 36 weeks gestation of pregnancy
CPT/HCPCS: 36415; 59025; 76815; 81001; 85025; G0378; G0379

== ENCOUNTER 2020-06-17 18:29 | Inpatient (IN) | payer MEDICAID ==
[~2020-06-17] VITALS: Ht 175.3 cm; Wt 158.3 kg
[2020-06-17] MEDS: IV RINGERS,LACTATED 1000ML 1,000 ML IV SCH ×3 (19:22→20:28)
[2020-06-17] MEDS ORDERED: hydrOXYzine 25 MG TABLET PO PRN (19:45)
[2020-06-17 21:02] LABS: BILIRUBIN,URINE NEGATIVE (NEG); CLARITY,URINE CLEAR; COLOR,URINE YELLOW; NITRITE,URINE NEGATIVE (NEG); PROTEIN,URINE NEGATIVE (NEG-TRACE)
[2020-06-17 21:07] LABS: BACTERIA,URINE FEW /HPF (0-FEW)
--- NOTE | 2020-06-17 21:50 | NUR ---
30 YO AT 37.2 WEEKS GESTATION, HX OF SECTION DELIVERIES X2, SEVERE ANEMIA, AND OBESITY. PRESENTS TO OB DEPARTMENT WITH COMPLAINTS OF BACK PAIN 5/10 AND PELVIC PRESSURE. UNABLE TO VOID FOR 2 HOURS AFTER ARRIVAL TO UNIT. ARRIVED ON UNIT AT 1840, OBSERVED AN OUTPATIENT. MONITOR DISPLAYED A CATEGORY II STRIP. 2149 ADMITTED FOR SECTION DELIVERY PER DR MEGAN DUTTON. .
[2020-06-17] MEDS ORDERED: IBUPROFEN 400 MG TABLET. PO PRN (22:00)
[2020-06-17] MEDS ORDERED: 0.9 % SODIUM CHLORIDE 10 ML DISP.SYRIN. IV PRN (22:00)
[2020-06-17] MEDS ORDERED: LIDOCAINE 1% PF 30 ML VIAL. INJ PRN (22:00)
[2020-06-17] MEDS ORDERED: TERBUTALINE 1 MG/ML VIAL. SQ PRN (22:00)
[2020-06-17] MEDS ORDERED: OXYTOCIN 30 UNIT/500 ML PREMIX 500 ML IV PRN ×2 (22:00)
[2020-06-17] MEDS ORDERED: fentaNYL PF VIAL 100 MCG/2 ML VIAL ONE (22:23)
[2020-06-17] MEDS ORDERED: MORPHINE PF 10 MG/10 ML AMPUL. ONE (22:23)
[2020-06-17] MEDS ORDERED: ONDANSETRON PF 4 MG/2 ML VIAL. ONE (22:26)
[2020-06-17] MEDS ORDERED: PHENYLEPHRINE in 0.9% NACL PF 1 MG/10 ML SYRINGE. IV ONE (22:26)
[2020-06-17] MEDS ORDERED: DEXAMETHASONE SOD PHOS 4 MG/ML VIAL ONE (22:26)
[2020-06-17] MEDS ORDERED: ePHEDrine PF IN SALINE 50 MG/10 ML SYRINGE. IV ONE (22:26)
[2020-06-17] MEDS ORDERED: OXYTOCIN 10 UNIT/ML VIAL. ONE ×3 (22:26)
[2020-06-17] MEDS ORDERED: CITRIC ACID/SODIUM CITRATE 30 ML SOLUTION. PO ONE (23:00)
[2020-06-17] MEDS ORDERED: ceFAZolin SODIUM IV Push 1 GM VIAL. IVP ONE (23:00)
--- NOTE | 2020-06-17 23:08 | PDOC1 ---
OB - History Hx of Present Care: Limited Care Ultrasounds: Normal mid trimester US Obstetrical Complications: Other (severe anemia) Medical Complications: Other (severe anemia) Past Family/Social History * Past Medical, Surgical, Family and Obstetric Histories reviewed from chart. Rubella: Immune RPR/VDRL: Negative GBS Status: Negative HBsAG: Negative OB - Chief Complaint & HPI Date of Admission: Date of Admission: Jun 17, 2020 at 18:29 Chief Complaint/History : 4 Para: 2 EGA: 37 Reason for admission: other (irregular contractions with variable decels) Admission Nurse Assessment Rev: Yes OB - Admission Exam Physical Exam HEENT: Normal Heart: Regular Rate, Other (tachycardia) Lungs: Clear Abdomen: Gravid, Non tender, Soft Extremities: Edema Reflexes: Normal Cervical Dilatation: 1cm Effacement: 25% Station: Ballotable Membranes: Intact Heart Rate: Normal Accelerations: Accelerations Present Decelerations: Variable decelerations Contractions on Admission: < 5 Minutes Apart Intensity: Mild Text A: 37 wks IUP Previous c/s x 2 Obesity Early labor Severe anemia : s/p transfusion 2 Units PRBC in 3rd trimester P: Admit for repeat c/s and BTL. MEGAN DUTTON Jr, MD Jun 17, 2020 23:08
[2020-06-17 23:13] LABS: BASO % 0 % (0-3); EOS # 0.1 x10^3/uL (0.0-0.7); EOS % 1 % (0-3); HEMATOCRIT 27.1 % (36.0-47.0); HEMOGLOBIN 8.2 g/dL (12.0-15.5); LYMPH # 1.5 x10^3/uL (1.0-4.8); LYMPH % 14 % (24-48); MEAN CORPUSCULAR HEMOGLOBIN 19 pg (25-35); MEAN CORPUSCULAR HGB CONC 30 g/dL (31-37); MEAN CORPUSCULAR VOLUME 63 fL (79-100); MONO # 0.7 x10^3/uL (0.0-1.1); MONO % 7 % (0-9); NEUT # 8.6 x10^3/uL (1.8-7.7); NEUT % 79 % (31-73); PLATELET COUNT 303 x10^3/uL (140-400); RED BLOOD COUNT 4.28 x10^6/uL (3.50-5.40); WHITE BLOOD COUNT 10.9 x10^3/uL (4.0-11.0)
--- NOTE | 2020-06-18 01:09 | PDOC1 ---
[employer] Delivery Summary: [facility] Delivery Summary: Called to attend delivery due to maternal severe anemia and decels. C/S was done due to previous c/s. Mother's labs were WNL. ROM at delivery. Infant presented with a nuchal cord and received 30 seconds of delayed cord clamping prior to being brought to the radiant warmer, dried and stimulated. He cried on the abdomen prior to coming to the warmer. He had good tone and he pinked up quickly without supplemental oxygen. Apgars were 8/9. He was left with the nursery nurse. She was instructed to call with any concerns. GENERAL: No apparent distress. Alert and oriented. HEENT: Head normocephalic, cranial bones approximate. NECK: Supple LUNGS: Clear to auscultation. HEART: RRR, S1, S2 present, pulses intact ABDOMEN: Soft, positive bowel sounds. EXTREMITIES: No cyanosis or edema. NEUROLOGIC: Normal tone for gestational age. SKIN: [place], well perfused. Christina Oviedo APRN. VIRIDIANA OVIEDO NP Jun 18, 2020 01:09
[2020-06-18] MEDS ORDERED: LIDOCAINE 2% PF 5 ML VIAL. ONE (01:10)
--- NOTE | 2020-06-18 01:36 | PDOC4 ---
OB Operative Note Date: Jun 18, 2020 PRE OP DIAGNOSIS: Previoujs C- section (NRFHT and early labor and Desires BTL and Severe anemia) POST OP DIAGNOSIS: Other (Same) OPERATION PERFORMED: R KTSC (and BTL) Surgeon Dr. Ghosh Anesthesia: Regional (Spinal) Blood Loss 700 ml Specimen placenta and OB Findings: Position (Vertex), Sex (Male), (8/9), Weight (7 Lb 10 oz), Nuchal Cord (x1) Complications none Additional Remarks pt. stable MEGAN GHOSH Jr, MD Jun 18, 2020 01:36
[2020-06-18] MEDS ORDERED: OXYTOCIN 30 UNIT/500 ML PREMIX 500 ML IV PRN (01:45)
[2020-06-18] MEDS ORDERED: diphenhydrAMINE ORAL ELIXIR 12.5 MG/5 ML ML PO PRN (01:45)
[2020-06-18] MEDS ORDERED: ONDANSETRON PF 4 MG/2 ML VIAL. IV PRN (01:45)
[2020-06-18] MEDS ORDERED: MAG HYDROX/ALUMINUM HYD/SIMETH 30 ML ORAL.SUSP PO PRN (01:45)
[2020-06-18] MEDS ORDERED: SIMETHICONE 80 MG TAB.CHEW PO PRN (01:45)
[2020-06-18] MEDS ORDERED: 0.9 % SODIUM CHLORIDE 10 ML DISP.SYRIN. IV PRN (01:45)
[2020-06-18] MEDS ORDERED: ZOLPIDEM 5 MG TABLET. PO PRN (01:45)
--- NOTE | 2020-06-18 03:39 | OP ---
DATE OF SURGERY: PREOPERATIVE DIAGNOSES: 1. A 37 weeks intrauterine . 2. Early labor. 3. Previous section x 2. 4. Nonreassuring heart tones. 5. Severe anemia. 6. Desires bilateral tubal ligation. POSTOPERATIVE DIAGNOSES: 1. A 37 weeks intrauterine . 2. Early labor. 3. Previous section x 2. 4. Nonreassuring heart tones. 5. Severe anemia. 6. Desires bilateral tubal ligation. PROCEDURE: Repeat low transverse section and bilateral tubal ligation. SURGEON: Megan Ghosh MD. ANESTHESIA: Spinal. ESTIMATED BLOOD LOSS: 700 mL. COMPLICATIONS: None. FINDINGS: Viable male infant, Apgars 8 and 9, weight 7 pounds 10 ounces. Three-vessel cord placenta delivered manually intact. Nuchal cord x 1. SUMMARY: A 30-year-old 4, para 2 at 37 weeks, presented to Labor Delivery with low back pain. The patient was found to have regular contractions. She has a history of severe anemia with her hemoglobin at 8 on today's visit. The patient also desired bilateral tubal ligation. The patient continued regular contractions despite IV hydration and also began having nonreassuring heart tones. The patient was counseled on the risks, benefits and expectations of repeat section as well as the failure rate for bilateral tubal ligation and voiced clear understanding to proceed. DESCRIPTION OF PROCEDURE: The patient was taken to surgery suite and placed in dorsal supine position, was prepped with ChloraPrep and draped in sterile fashion. After adequate anesthesia, Pfannenstiel skin incision was made with scalpel down to and through the fascia. Fascia was excised laterally using curved Michel scissors. The superior edge of fascia was grasped with two Lan clamps and dissected free of the abdominal rectus muscles using blunt dissection along with Bovie cautery. The same process took place inferiorly. The abdominal rectus muscle dissected bluntly at the midline as well as with curved Michel scissors. The peritoneum was entered with curved Michel scissors. The Contreras ring retractor was placed. Low transverse hysterotomy incision was made with a scalpel down to the amniotic sac. Hysterotomy incision was extended laterally and superiorly digitally. Amniotomy was performed with Allis clamp and elicited moderate amount of clear fluid. With the aid of Kiwi vacuum device and fundal pressure, the infant's head was delivered in a smooth atraumatic manner. The Kiwi vacuum device was removed. Nuchal cord x 1 was visualized and reduced. With additional fundal pressure, the anterior shoulder was delivered followed by posterior shoulder. Rest of male infant was delivered. Infant was suctioned with a bulb syringe orally and nasally, umbilical cord was clamped twice and cut and viable male infant was handed to waiting nursing staff. Umbilical cord blood as well as arterial pH was obtained. Three-vessel cord placenta was delivered manually intact. Uterus was then exteriorized and cleared of clot and debris with a moist lap. The hysterotomy incision was reapproximated using #1 Vicryl suture in running locked fashion and the imbricated layer of #1 Vicryl suture in running fashion was utilized for better hemostasis. The uterus palpated firm. Fallopian tubes and ovaries appeared normal bilaterally. Posterior cul-de-sac was cleared of clot and debris with a moist lap. The right fallopian tube was grasped with a Stoddard, undermined in the mesosalpinx with Bovie cautery. Proximal and distal ends of the fallopian tube were tied with plain gut suture. The mid section of fallopian tube was excised using Metzenbaum scissors. Two telescoping ends which were hemostatic were visualized. Same process took place with left adnexa. The uterus was then returned to the abdomen. Pericolic gutters were cleared of clot and debris with a moist lap. The hysterotomy incision was reviewed and was hemostatic. The Contreras ring retractor was removed. Peritoneum was reapproximated using #1 Vicryl suture in running fashion. Fascia was reapproximated using Stratafix in running fashion. The skin was reapproximated using 4-0 Vicryl suture in subcuticular manner. The patient tolerated the procedure well and was taken to recovery room in stable condition. Sponge and needle count correct x 3. MEGAN GHOSH MD DR: DAWSON/joseph JOB#: [id number] / [id number]
[2020-06-18 05:40] LABS: ANISOCYTOSIS MOD; HYPOCHROMIA MARKED; MICROCYTOSIS MOD; PLT ESTIMATE ADEQUATE (ADEQUATE); POLYCHROMASIA SLIGHT
[2020-06-18 05:41] LABS: OVALOCYTES OCC; TEAR DROP CELLS OCC
[2020-06-18 05:45] VITALS: BP 105/63
[2020-06-18] MEDS: IV RINGERS,LACTATED 1000ML 1,000 ML IV SCH ×3 (05:50→13:45)
[2020-06-18 07:15] VITALS: BP 94/49
[2020-06-18 08:40] VITALS: BP 97/52
[2020-06-18 11:30] VITALS: BP 97/52
[2020-06-18 11:42] LABS: BASO % 0 % (0-3); EOS % 0 % (0-3); HEMATOCRIT 25.9 % (36.0-47.0); HEMOGLOBIN 7.9 g/dL (12.0-15.5); LYMPH # 0.7 x10^3/uL (1.0-4.8); LYMPH % 5 % (24-48); MEAN CORPUSCULAR HEMOGLOBIN 19 pg (25-35); MEAN CORPUSCULAR HGB CONC 30 g/dL (31-37); MEAN CORPUSCULAR VOLUME 63 fL (79-100); MONO # 0.3 x10^3/uL (0.0-1.1); MONO % 3 % (0-9); NEUT % 92 % (31-73); PLATELET COUNT 277 x10^3/uL (140-400); RED BLOOD COUNT 4.13 x10^6/uL (3.50-5.40); RED CELL DISTRIBUTION WIDTH 24.4 % (11.5-14.5); WHITE BLOOD COUNT 13.1 x10^3/uL (4.0-11.0)
[2020-06-18 13:02] LABS: % BANDS 5 % (0-9); % LYMPHS 7 % (24-48); % METAS 1 % (0-0); % MONOS 1 % (0-10); % SEGS 86 % (35-66)
[2020-06-18 13:03] LABS: ANISOCYTOSIS MOD; HYPOCHROMIA MARKED; MICROCYTOSIS MARKED; PLT ESTIMATE ADEQUATE (ADEQUATE); POLYCHROMASIA MOD
[2020-06-18 13:04] LABS: OVALOCYTES FEW
[2020-06-18] MEDS: KETOROLAC 30 MG/ML VIAL. IV PRN ×2 (14:35→21:38)
[2020-06-18 16:10] VITALS: BP 99/56
[2020-06-18 20:00] VITALS: BP 132/75
[2020-06-19] VITALS: BP 107/57
[2020-06-19 04:13] VITALS: BP 102/52
--- NOTE | 2020-06-19 06:51 | PDOC ---
OB Progress Note Date of Service 06/19/20 Time of Evaluation 0645 Notes Pt. feeling well. Pain controlled. Lab Laboratory Tests Test 06/17/20 20:55 06/17/20 22:28 06/17/20 22:55 06/18/20 11:30 Urine Collection Type Unknown Urine Color Yellow Urine Clarity Clear Urine pH 6.0 (<5.0-8.0) Urine Specific Brady >=1.030 (1.000-1.030) Urine Protein Negative mg/dL (NEG-TRACE) Urine Glucose (UA) Negative mg/dL (NEG) Urine Ketones (Stick) Trace mg/dL (NEG) Urine Blood Negative (NEG) Urine Nitrite Negative (NEG) Urine Bilirubin Negative (NEG) Urine Urobilinogen Dipstick 1.0 mg/dL (0.2 mg/dL) Urine Leukocyte Esterase Negative (NEG) Urine RBC 1-2 /HPF (0-2) Urine WBC 1-4 /HPF (0-4) Urine Squamous Epithelial Cells Mod /LPF Urine Bacteria Few /HPF (0-FEW) Urine Mucus Mod /LPF SARS-CoV-2 Antigen (Rapid) Negative (NEGATIVE) White Blood Count 10.9 x10^3/uL (4.0-11.0) 13.1 x10^3/uL (4.0-11.0) Red Blood Count 4.28 x10^6/uL (3.50-5.40) 4.13 x10^6/uL (3.50-5.40) Hemoglobin 8.2 g/dL (12.0-15.5) 7.9 g/dL (12.0-15.5) Hematocrit 27.1 % (36.0-47.0) 25.9 % (36.0-47.0) Mean Corpuscular Volume 63 fL (79-100) 63 fL (79-100) Mean Corpuscular Hemoglobin 19 pg (25-35) 19 pg (25-35) Mean Corpuscular Hemoglobin Concent 30 g/dL (31-37) 30 g/dL (31-37) Red Cell Distribution Width 24.0 % (11.5-14.5) 24.4 % (11.5-14.5) Platelet Count 303 x10^3/uL (140-400) 277 x10^3/uL (140-400) Neutrophils (%) (Auto) 79 % (31-73) 92 % (31-73) Lymphocytes (%) (Auto) 14 % (24-48) 5 % (24-48) Monocytes (%) (Auto) 7 % (0-9) 3 % (0-9) Eosinophils (%) (Auto) 1 % (0-3) 0 % (0-3) Basophils (%) (Auto) 0 % (0-3) 0 % (0-3) Neutrophils # (Auto) 8.6 x10^3/uL (1.8-7.7) 12.0 x10^3/uL (1.8-7.7) Lymphocytes # (Auto) 1.5 x10^3/uL (1.0-4.8) 0.7 x10^3/uL (1.0-4.8) Monocytes # (Auto) 0.7 x10^3/uL (0.0-1.1) 0.3 x10^3/uL (0.0-1.1) Eosinophils # (Auto) 0.1 x10^3/uL (0.0-0.7) 0.0 x10^3/uL (0.0-0.7) Basophils # (Auto) 0.0 x10^3/uL (0.0-0.2) 0.0 x10^3/uL (0.0-0.2) Platelet Estimate Adequate (ADEQUATE) Adequate (ADEQUATE) Large Platelets Occ Polychromasia Slight Mod Hypochromasia Marked Marked Anisocytosis Mod Mod Microcytosis Mod Marked Tear Drop Cells Occ Ovalocytes Occ Few Segmented Neutrophils % 86 % (35-66) Band Neutrophils % 5 % (0-9) Lymphocytes % 7 % (24-48) Monocytes % 1 % (0-10) Metamyelocytes % 1 % (0-0) Basophilic Stippling Present Laboratory Tests Test 06/18/20 11:30 White Blood Count 13.1 x10^3/uL (4.0-11.0) Red Blood Count 4.13 x10^6/uL (3.50-5.40) Hemoglobin 7.9 g/dL (12.0-15.5) Hematocrit 25.9 % (36.0-47.0) Mean Corpuscular Volume 63 fL (79-100) Mean Corpuscular Hemoglobin 19 pg (25-35) Mean Corpuscular Hemoglobin Concent 30 g/dL (31-37) Red Cell Distribution Width 24.4 % (11.5-14.5) Platelet Count 277 x10^3/uL (140-400) Neutrophils (%) (Auto) 92 % (31-73) Lymphocytes (%) (Auto) 5 % (24-48) Monocytes (%) (Auto) 3 % (0-9) Eosinophils (%) (Auto) 0 % (0-3) Basophils (%) (Auto) 0 % (0-3) Neutrophils # (Auto) 12.0 x10^3/uL (1.8-7.7) Lymphocytes # (Auto) 0.7 x10^3/uL (1.0-4.8) Monocytes # (Auto) 0.3 x10^3/uL (0.0-1.1) Eosinophils # (Auto) 0.0 x10^3/uL (0.0-0.7) Basophils # (Auto) 0.0 x10^3/uL (0.0-0.2) Segmented Neutrophils % 86 % (35-66) Band Neutrophils % 5 % (0-9) Lymphocytes % 7 % (24-48) Monocytes % 1 % (0-10) Metamyelocytes % 1 % (0-0) Platelet Estimate Adequate (ADEQUATE) Polychromasia Mod Hypochromasia Marked Basophilic Stippling Present Anisocytosis Mod Microcytosis Marked Ovalocytes Few Medications Current Medications Ringer's Solution 1,000 ml @ 125 mls/hr Q8H IV Last administered on 06/17/20at 20:28; Start 06/17/20 at 18:45; Stop 06/18/20 at 01:41; Status DC Hydroxyzine HCl (Atarax) 50 mg PRN Q6HRS PRN PO TACHYCARDIA/ANXIETY Last administered on 06/17/20at 19:52; Start 06/17/20 at 19:45 Sodium Chloride (Normal Saline Flush) 3 ml QSHIFT PRN IV AFTER MEDS AND BLOOD DRAWS; Start 06/17/20 at 22:00 Ringer's Solution 1,000 ml @ 125 mls/hr Q8H IV Last administered on 06/18/20at 13:45; Start 06/17/20 at 22:00 Terbutaline Sulfate (Brethine) 0.25 mg 1X PRN PRN SQ SEE COMMENTS; Start 06/17/20 at 22:00; Stop 06/18/20 at 21:59; Status DC Lidocaine HCl (Xylocaine 1% Pf 30ml Vial) 30 ml 1X PRN PRN INJ SEE COMMENTS; Start 06/17/20 at 22:00; Stop 06/19/20 at 21:59 Oxytocin 500 ml @ 0 mls/hr CONT PRN IV SEE I/O RECORD; Start 06/17/20 at 22:00 Oxytocin 500 ml @ 0 mls/hr CONT PRN PRN IV Post delivery bleeding; Start 06/17/20 at 22:00 Ibuprofen (Motrin) 800 mg PRN Q6HRS PRN PO MODERATE PAIN 4-6; Start 06/17/20 at 22:00; Stop 06/18/20 at 01:41; Status DC Citric Acid/ Sodium Citrate (Bicitra) 30 ml 1X ONCE PO Last administered on 06/17/20at 23:24; Start 06/17/20 at 23:00; Stop 06/17/20 at 23:01; Status DC Cefazolin Sodium (Ancef) 3 gm 1X ONCE IVP ; Start 06/17/20 at 23:00; Stop 06/17/20 at 23:01; Status DC Morphine Sulfate (Morphine Preservative Free) 10 mg STK-MED ONCE .ROUTE ; Start 06/17/20 at 22:23; Stop 06/17/20 at 22:24; Status DC Fentanyl Citrate (Fentanyl 2ml Vial) 100 mcg STK-MED ONCE .ROUTE ; Start 06/17/20 at 22:23; Stop 06/17/20 at 22:24; Status DC Phenylephrine HCl (PHENYLEPHRINE in 0.9% NACL PF) 1 mg STK-MED ONCE IV ; Start 06/17/20 at 22:26; Stop 06/17/20 at 22:26; Status DC Ephedrine Sulfate (ePHEDrine PF IN SALINE SYRINGE) 50 mg STK-MED ONCE IV ; Start 06/17/20 at 22:26; Stop 06/17/20 at 22:26; Status DC Dexamethasone Sodium Phosphate (Decadron) 4 mg STK-MED ONCE .ROUTE ; Start 06/17/20 at 22:26; Stop 06/17/20 at 22:26; Status DC Ondansetron HCl (Zofran) 4 mg STK-MED ONCE .ROUTE ; Start 06/17/20 at 22:26; Stop 06/17/20 at 22:26; Status DC Oxytocin (Pitocin) 10 unit STK-MED ONCE .ROUTE ; Start 06/17/20 at 22:26; Stop 06/17/20 at 22:26; Status DC Oxytocin (Pitocin) 10 unit STK-MED ONCE .ROUTE ; Start 06/17/20 at 22:26; Stop 06/17/20 at 22:26; Status DC Oxytocin (Pitocin) 10 unit STK-MED ONCE .ROUTE ; Start 06/17/20 at 22:26; Stop 06/17/20 at 22:26; Status DC Lidocaine HCl (Lidocaine Pf 2% Vial) 5 ml STK-MED ONCE .ROUTE ; Start 06/18/20 at 01:10; Stop 06/18/20 at 01:10; Status DC Sodium Chloride (Normal Saline Flush) 3 ml QSHIFT PRN IV AFTER MEDS AND BLOOD DRAWS; Start 06/18/20 at 01:45 Oxytocin 500 ml @ 125 mls/hr CONT PRN IV EXCESSIVE POST- BLEEDING; Start 06/18/20 at 01:45; Stop 06/18/20 at 09:44; Status DC Ibuprofen (Motrin) 800 mg PRN Q8HRS PRN PO INFLAMMATION; Start 06/18/20 at 01:45 Ondansetron HCl (Zofran) 4 mg PRN Q6HRS PRN IV NAUSEA/VOMITING 1ST CHOICE; Start 06/18/20 at 01:45 Docusate Sodium (Colace) 100 mg PRN BID PRN PO CONSTIPATION; Start 06/18/20 at 01:45 Al Hydroxide/Mg Hydroxide (Mylanta Plus Xs) 30 ml PRN Q4HRS PRN PO HEARTBURN / GAS; Start 06/18/20 at 01:45 Simethicone (Gas-X) 80 mg PRN AFTMEALHC PRN PO GAS / BLOATING; Start 06/18/20 at 01:45 Diphenhydramine HCl (Benadryl Oral Elixir) 12.5 mg PRN Q6HRS PRN PO ITCHING; Start 06/18/20 at 01:45 Ferrous Sulfate (Feosol) 325 mg BIDWMEALS PO ; Start 06/18/20 at 08:00 Zolpidem Tartrate (Ambien) 5 mg PRN QHS PRN PO INSOMNIA, MAY REPEAT X1; Start 06/18/20 at 01:45 Oxycodone/ Acetaminophen (Percocet 5/325) 2 tab PRN Q4HRS PRN PO MODERATE PAIN, SEVERE PAIN; Start 06/18/20 at 01:45 Ketorolac Tromethamine (Toradol 30mg Vial) 30 mg PRN Q6HRS PRN IV INFLAMMATION/PAIN Last administered on 06/18/20at 21:38; Start 06/18/20 at 01:45; Stop 06/23/20 at 01:44 Multivitamins (Thera M Plus) 1 tab DAILY PO ; Start 06/18/20 at 09:00 Active Scripts Active Ferrous Sulfate 325 Mg Tablet 1 Tab PO BID Zofran (Ondansetron Hcl) 4 Mg Tablet 1 Tab PO Q6HRS Cyclobenzaprine Hcl 5 Mg Tablet 1 Tab PO QHS Percocet 5-325 Mg Tablet (Oxycodone/Acetaminophen) 1 Each Tablet 1 Tab PO PRN Q6HRS PRN Ibuprofen 800 Mg Tablet 800 Mg PO PRN Q6HRS PRN Colace (Docusate Sodium) 100 Mg Capsule 100 Mg PO BID Metronidazole 500 Mg Tablet 1 Tab PO BID Macrobid 100 Mg Capsule (Nitrofurantoin Monohyd/M-Cryst) 100 Mg Capsule 1 Cap PO BID [Oxycodone Hcl/Acetaminophen] 1 TAB Tablet 2 Tab PO PRN Q4HRS PRN [Ibuprofen] 800 MG Tablet 800 Mg PO PRN Q6HRS PRN Hydrocortisone 1% Ointment (Hydrocortisone/Aloe Vera) 28 Gm Oint...g. 28 Gm TP PRN BID 30 Days rash Prednisone 50 Mg Tablet 50 Mg PO DAILY 5 Days Reported Procardia Xl (Nifedipine) 30 Mg Tab.er.24 30 Mg PO DAILY Exam ABd: soft, mild tenderness, fundus firm Prevena in place. Assessment POD#1 s/p repeat c/s anemia Plan of Care: Continue current Tx, Mgmt MEGAN DUTTON Jr, MD Jun 19, 2020 06:51
[2020-06-19] MEDS: FERROUS SULFATE 325 MG TABLET. PO SCH ×2 (08:17→17:07)
[2020-06-19] MEDS: MULTIVITAMIN with MINERAL TABLET. PO SCH (08:17)
[2020-06-19] MEDS: DOCUSATE SODIUM 100 MG CAPSULE. PO PRN ×2 (08:17→22:11)
[2020-06-19 08:18] LABS: BASO % 0 % (0-3); EOS # 0.1 x10^3/uL (0.0-0.7); EOS % 1 % (0-3); HEMATOCRIT 25.2 % (36.0-47.0); HEMOGLOBIN 7.6 g/dL (12.0-15.5); LYMPH # 1.9 x10^3/uL (1.0-4.8); LYMPH % 20 % (24-48); MEAN CORPUSCULAR HEMOGLOBIN 20 pg (25-35); MEAN CORPUSCULAR HGB CONC 30 g/dL (31-37); MEAN CORPUSCULAR VOLUME 65 fL (79-100); MONO # 0.6 x10^3/uL (0.0-1.1); MONO % 6 % (0-9); NEUT # 6.9 x10^3/uL (1.8-7.7); NEUT % 73 % (31-73); PLATELET COUNT 260 x10^3/uL (140-400); RED BLOOD COUNT 3.88 x10^6/uL (3.50-5.40); RED CELL DISTRIBUTION WIDTH 24.1 % (11.5-14.5); WHITE BLOOD COUNT 9.4 x10^3/uL (4.0-11.0)
[2020-06-19] MEDS: IBUPROFEN 400 MG TABLET. PO PRN ×2 (08:19→17:11)
[2020-06-19 08:30] VITALS: BP 97/53
[2020-06-19 12:20] VITALS: BP 109/71
[2020-06-19] MEDS: oxyCODONE/APAP 5/325 1 TAB TABLET PO PRN ×2 (12:34→22:12)
[2020-06-19 17:10] VITALS: BP 88/52
[2020-06-19 19:43] VITALS: BP 94/48
--- NOTE | 2020-06-19 23:00 | NUR ---
assumed care of pt.
[2020-06-20 04:44] VITALS: BP 111/70
[2020-06-20] MEDS: oxyCODONE/APAP 5/325 1 TAB TABLET PO PRN ×3 (06:14→19:47)
--- NOTE | 2020-06-20 08:00 | NUR ---
Pt. encouraged to continue to use IS. Pt. states will be staying another night and verbalized understanding up about walking around to help with gas pain and to prevent blood clots. Pt. states plan to be up in room today.
[2020-06-20] MEDS: DOCUSATE SODIUM 100 MG CAPSULE. PO PRN (08:47)
[2020-06-20] MEDS: MULTIVITAMIN with MINERAL TABLET. PO SCH (08:48)
[2020-06-20] MEDS: FERROUS SULFATE 325 MG TABLET. PO SCH ×2 (08:48→17:36)
[2020-06-20 08:55] VITALS: BP 95/48
--- NOTE | 2020-06-20 09:50 | PDOC ---
OB Progress Note Date of Service 06/20/20 Time of Evaluation 945 Notes Pt. feeling well. No complaints. Pain controlled. Lab Laboratory Tests Test 06/18/20 11:30 06/19/20 07:05 White Blood Count 13.1 x10^3/uL (4.0-11.0) 9.4 x10^3/uL (4.0-11.0) Red Blood Count 4.13 x10^6/uL (3.50-5.40) 3.88 x10^6/uL (3.50-5.40) Hemoglobin 7.9 g/dL (12.0-15.5) 7.6 g/dL (12.0-15.5) Hematocrit 25.9 % (36.0-47.0) 25.2 % (36.0-47.0) Mean Corpuscular Volume 63 fL (79-100) 65 fL (79-100) Mean Corpuscular Hemoglobin 19 pg (25-35) 20 pg (25-35) Mean Corpuscular Hemoglobin Concent 30 g/dL (31-37) 30 g/dL (31-37) Red Cell Distribution Width 24.4 % (11.5-14.5) 24.1 % (11.5-14.5) Platelet Count 277 x10^3/uL (140-400) 260 x10^3/uL (140-400) Neutrophils (%) (Auto) 92 % (31-73) 73 % (31-73) Lymphocytes (%) (Auto) 5 % (24-48) 20 % (24-48) Monocytes (%) (Auto) 3 % (0-9) 6 % (0-9) Eosinophils (%) (Auto) 0 % (0-3) 1 % (0-3) Basophils (%) (Auto) 0 % (0-3) 0 % (0-3) Neutrophils # (Auto) 12.0 x10^3/uL (1.8-7.7) 6.9 x10^3/uL (1.8-7.7) Lymphocytes # (Auto) 0.7 x10^3/uL (1.0-4.8) 1.9 x10^3/uL (1.0-4.8) Monocytes # (Auto) 0.3 x10^3/uL (0.0-1.1) 0.6 x10^3/uL (0.0-1.1) Eosinophils # (Auto) 0.0 x10^3/uL (0.0-0.7) 0.1 x10^3/uL (0.0-0.7) Basophils # (Auto) 0.0 x10^3/uL (0.0-0.2) 0.0 x10^3/uL (0.0-0.2) Segmented Neutrophils % 86 % (35-66) Band Neutrophils % 5 % (0-9) Lymphocytes % 7 % (24-48) Monocytes % 1 % (0-10) Metamyelocytes % 1 % (0-0) Platelet Estimate Adequate (ADEQUATE) Polychromasia Mod Hypochromasia Marked Basophilic Stippling Present Anisocytosis Mod Microcytosis Marked Ovalocytes Few Medications Current Medications Ringer's Solution 1,000 ml @ 125 mls/hr Q8H IV Last administered on 06/17/20at 20:28; Start 06/17/20 at 18:45; Stop 06/18/20 at 01:41; Status DC Hydroxyzine HCl (Atarax) 50 mg PRN Q6HRS PRN PO TACHYCARDIA/ANXIETY Last administered on 06/17/20at 19:52; Start 06/17/20 at 19:45 Sodium Chloride (Normal Saline Flush) 3 ml QSHIFT PRN IV AFTER MEDS AND BLOOD DRAWS Last administered on 06/19/20at 08:22; Start 06/17/20 at 22:00; Stop 06/19/20 at 12:00; Status DC Ringer's Solution 1,000 ml @ 125 mls/hr Q8H IV Last administered on 06/18/20at 13:45; Start 06/17/20 at 22:00; Stop 06/19/20 at 12:00; Status DC Terbutaline Sulfate (Brethine) 0.25 mg 1X PRN PRN SQ SEE COMMENTS; Start 06/17/20 at 22:00; Stop 06/18/20 at 21:59; Status DC Lidocaine HCl (Xylocaine 1% Pf 30ml Vial) 30 ml 1X PRN PRN INJ SEE COMMENTS; Start 06/17/20 at 22:00; Stop 06/19/20 at 12:00; Status DC Oxytocin 500 ml @ 0 mls/hr CONT PRN IV SEE I/O RECORD; Start 06/17/20 at 22:00; Stop 06/19/20 at 12:00; Status DC Oxytocin 500 ml @ 0 mls/hr CONT PRN PRN IV Post delivery bleeding; Start 06/17/20 at 22:00 Ibuprofen (Motrin) 800 mg PRN Q6HRS PRN PO MODERATE PAIN 4-6; Start 06/17/20 at 22:00; Stop 06/18/20 at 01:41; Status DC Citric Acid/ Sodium Citrate (Bicitra) 30 ml 1X ONCE PO Last administered on 06/17/20at 23:24; Start 06/17/20 at 23:00; Stop 06/17/20 at 23:01; Status DC Cefazolin Sodium (Ancef) 3 gm 1X ONCE IVP ; Start 06/17/20 at 23:00; Stop 06/17/20 at 23:01; Status DC Morphine Sulfate (Morphine Preservative Free) 10 mg STK-MED ONCE .ROUTE ; Start 06/17/20 at 22:23; Stop 06/17/20 at 22:24; Status DC Fentanyl Citrate (Fentanyl 2ml Vial) 100 mcg STK-MED ONCE .ROUTE ; Start 06/17/20 at 22:23; Stop 06/17/20 at 22:24; Status DC Phenylephrine HCl (PHENYLEPHRINE in 0.9% NACL PF) 1 mg STK-MED ONCE IV ; Start 06/17/20 at 22:26; Stop 06/17/20 at 22:26; Status DC Ephedrine Sulfate (ePHEDrine PF IN SALINE SYRINGE) 50 mg STK-MED ONCE IV ; Start 06/17/20 at 22:26; Stop 06/17/20 at 22:26; Status DC Dexamethasone Sodium Phosphate (Decadron) 4 mg STK-MED ONCE .ROUTE ; Start 06/17/20 at 22:26; Stop 06/17/20 at 22:26; Status DC Ondansetron HCl (Zofran) 4 mg STK-MED ONCE .ROUTE ; Start 06/17/20 at 22:26; Stop 06/17/20 at 22:26; Status DC Oxytocin (Pitocin) 10 unit STK-MED ONCE .ROUTE ; Start 06/17/20 at 22:26; Stop 06/17/20 at 22:26; Status DC Oxytocin (Pitocin) 10 unit STK-MED ONCE .ROUTE ; Start 06/17/20 at 22:26; Stop 06/17/20 at 22:26; Status DC Oxytocin (Pitocin) 10 unit STK-MED ONCE .ROUTE ; Start 06/17/20 at 22:26; Stop 06/17/20 at 22:26; Status DC Lidocaine HCl (Lidocaine Pf 2% Vial) 5 ml STK-MED ONCE .ROUTE ; Start 06/18/20 at 01:10; Stop 06/18/20 at 01:10; Status DC Sodium Chloride (Normal Saline Flush) 3 ml QSHIFT PRN IV AFTER MEDS AND BLOOD DRAWS; Start 06/18/20 at 01:45 Oxytocin 500 ml @ 125 mls/hr CONT PRN IV EXCESSIVE POST- BLEEDING; Sta rt 06/18/20 at 01:45; Stop 06/18/20 at 09:44; Status DC Ibuprofen (Motrin) 800 mg PRN Q8HRS PRN PO INFLAMMATION Last administered on 06/19/20at 17:11; Start 06/18/20 at 01:45 Ondansetron HCl (Zofran) 4 mg PRN Q6HRS PRN IV NAUSEA/VOMITING 1ST CHOICE; Start 06/18/20 at 01:45 Docusate Sodium (Colace) 100 mg PRN BID PRN PO CONSTIPATION Last administered on 06/20/20at 08:47; Start 06/18/20 at 01:45 Al Hydroxide/Mg Hydroxide (Mylanta Plus Xs) 30 ml PRN Q4HRS PRN PO HEARTBURN / GAS; Start 06/18/20 at 01:45 Simethicone (Gas-X) 80 mg PRN AFTMEALHC PRN PO GAS / BLOATING; Start 06/18/20 at 01:45 Diphenhydramine HCl (Benadryl Oral Elixir) 12.5 mg PRN Q6HRS PRN PO ITCHING; Start 06/18/20 at 01:45; Stop 06/19/20 at 12:00; Status DC Ferrous Sulfate (Feosol) 325 mg BIDWMEALS PO Last administered on 06/20/20at 08:48; Start 06/18/20 at 08:00 Zolpidem Tartrate (Ambien) 5 mg PRN QHS PRN PO INSOMNIA, MAY REPEAT X1; Start 06/18/20 at 01:45 Oxycodone/ Acetaminophen (Percocet 5/325) 2 tab PRN Q4HRS PRN PO MODERATE PAIN, SEVERE PAIN Last administered on 06/20/20at 06:14; Start 06/18/20 at 01:45 Ketorolac Tromethamine (Toradol 30mg Vial) 30 mg PRN Q6HRS PRN IV INFLAMMATION/PAIN Last administered on 06/18/20at 21:38; Start 06/18/20 at 01:45; Stop 06/23/20 at 01:44 Multivitamins (Thera M Plus) 1 tab DAILY PO Last administered on 06/20/20at 08:48; Start 06/18/20 at 09:00 Active Scripts Active Ferrous Sulfate 325 Mg Tablet 1 Tab PO BID Zofran (Ondansetron Hcl) 4 Mg Tablet 1 Tab PO Q6HRS Cyclobenzaprine Hcl 5 Mg Tablet 1 Tab PO QHS Percocet 5-325 Mg Tablet (Oxycodone/Acetaminophen) 1 Each Tablet 1 Tab PO PRN Q6HRS PRN Ibuprofen 800 Mg Tablet 800 Mg PO PRN Q6HRS PRN Colace (Docusate Sodium) 100 Mg Capsule 100 Mg PO BID Metronidazole 500 Mg Tablet 1 Tab PO BID Macrobid 100 Mg Capsule (Nitrofurantoin Monohyd/M-Cryst) 100 Mg Capsule 1 Cap PO BID [Oxycodone Hcl/Acetaminophen] 1 TAB Tablet 2 Tab PO PRN Q4HRS PRN [Ibuprofen] 800 MG Tablet 800 Mg PO PRN Q6HRS PRN Hydrocortisone 1% Ointment (Hydrocortisone/Aloe Vera) 28 Gm Oint...g. 28 Gm TP PRN BID 30 Days rash Prednisone 50 Mg Tablet 50 Mg PO DAILY 5 Days Reported Procardia Xl (Nifedipine) 30 Mg Tab.er.24 30 Mg PO DAILY Exam Abd: soft, non tender, fundus firm Prevena in place Assessment POD# 2 s/p repeat c/s and BTL Plan of Care: Continue current Tx, Mgmt MEGAN DUTTON Jr, MD Jun 20, 2020 09:50
--- NOTE | 2020-06-20 12:00 | NUR ---
Bed changed, pt up in room and sitting in chair.
--- NOTE | 2020-06-20 12:30 | NUR ---
Pt. resting with NB on chest. Pt. verbalized understanding about safe sleep and states will place NB in crib if too sleepy.
--- NOTE | 2020-06-20 14:00 | NUR ---
Pt. sleeping, NB on chest. Mom awake and RN places NB into crib.
[2020-06-20 16:30] VITALS: BP 122/70
--- NOTE | 2020-06-20 17:30 | NUR ---
Pt. c/o headache, neck and back pain. Pt. encouraged to increase hydration sips of water taken from pitcher. Pt. sipping on Cola at this time to try to relieve headache. Pt. states will be up to shower after brings clothing to change into.
[2020-06-20] MEDS: IBUPROFEN 400 MG TABLET. PO PRN (17:36)
[2020-06-20 20:00] VITALS: BP 119/64
[2020-06-21] MEDS: IBUPROFEN 400 MG TABLET. PO PRN ×2 (01:50→09:07)
[2020-06-21 02:00] VITALS: BP 116/71
[2020-06-21] MEDS: oxyCODONE/APAP 5/325 1 TAB TABLET PO PRN ×2 (07:28→15:13)
[2020-06-21] MEDS: FERROUS SULFATE 325 MG TABLET. PO SCH (07:28)
[2020-06-21] MEDS: DOCUSATE SODIUM 100 MG CAPSULE. PO PRN (07:28)
[2020-06-21] MEDS: MULTIVITAMIN with MINERAL TABLET. PO SCH (07:28)
[2020-06-21 07:40] VITALS: BP 108/66
--- NOTE | 2020-06-21 09:44 | PDOC3 ---
OB DISCHARGE SUMMARY DATE OF ADMISSION: 06/18/20 DATE OF DISCHARGE: 06/21/20 REASON FOR ADMISSION: Onset of labor, section, Other ( intolerance ) INTRAPARTUM PROCEDURES: : Low Cerv Trans PROCEDURES: Tubal Ligation DISCHARGE DIAGNOSIS: Term Delivered DISCHARGE INFORMATION: Activity (ad alix), Diet (regular ), Instructions (pelvic rest x 6 wks, no driving x 2 wks, no lifting > 20 lbs. x 4 wks) HOSPITAL COURSE Term gestation delivered without complications. MEGAN DUTTON Jr, MD Jun 21, 2020 09:44
[2020-06-21] MEDS ORDERED: IBUP-1060 PO (09:47)
[2020-06-21] MEDS ORDERED: DOCU-109 PO (09:47)
[2020-06-21] MEDS ORDERED: FERR325T14 PO (09:47)
[2020-06-21] MEDS ORDERED: OXYC1TAB15 PO (09:47)
--- NOTE | 2020-06-21 09:48 | DISCH ---
DISCHARGE INSTRUCTIONS Condition on Discharge Condition on Discharge: Stable Activity After Discharge Activity Instructions for Disc: Activity as tolerated Bathing Instructions: Shower-keep dressing dry Lifting Instructions after Dis: No heavy lifting Exercise Instruction after Dis: Progress as tolerated Driving Instructions after Dis: No driving for 2 weeks Diet after Discharge Diet after Discharge: Regular Diet Texture: Regular Swallowing Supervision: None needed Wound Incision Care Wound/Incision Care: Ice to area for comfort Checks after Discharge Checks after discharge: Check blood press - daily, Check your Temp as needed Contacting the DRCamron after DC Call your doctor for: Concerns you may have Follow-Up Follow up with: Dr. Ghosh in 2 wks Treatment/Equipment after DC Adaptive Equipment Issued: None MEGAN GHOSH Jr, MD Jun 21, 2020 09:48
[2020-06-21 12:15] VITALS: BP 100/46
--- NOTE | 2020-06-21 15:08 | PDOC ---
Date and Time CTSP re headache Developed positional headache without any other symptoms 3 days after spinal for c section. Resolves when supine. Patient had very difficult spinal placement but dura was punctured only once. 25g 5" Mack did not allow us to place spinal. We did not have a 5" pencil point needle available so we used a 22g 5" Quincke spinal needle with the bevel inserted parallel to dural fibers. Option discussed. Due to difficulty placing spinal as well as mild to moderate symptoms I believe it best to wait it out. Most resolve in 4-5 days. Patient instructed to call us should any other symptoms appear or if she continues to have a headache beyond Friday. She understands and will call if needed. Current Medications Current Medications Ringer's Solution 1,000 ml @ 125 mls/hr Q8H IV Last administered on 06/17/20at 20:28; Start 06/17/20 at 18:45; Stop 06/18/20 at 01:41; Status DC Hydroxyzine HCl (Atarax) 50 mg PRN Q6HRS PRN PO TACHYCARDIA/ANXIETY Last administered on 06/17/20at 19:52; Start 06/17/20 at 19:45 Sodium Chloride (Normal Saline Flush) 3 ml QSHIFT PRN IV AFTER MEDS AND BLOOD DRAWS Last administered on 06/19/20at 08:22; Start 06/17/20 at 22:00; Stop 06/19/20 at 12:00; Status DC Ringer's Solution 1,000 ml @ 125 mls/hr Q8H IV Last administered on 06/18/20at 13:45; Start 06/17/20 at 22:00; Stop 06/19/20 at 12:00; Status DC Terbutaline Sulfate (Brethine) 0.25 mg 1X PRN PRN SQ SEE COMMENTS; Start 06/17/20 at 22:00; Stop 06/18/20 at 21:59; Status DC Lidocaine HCl (Xylocaine 1% Pf 30ml Vial) 30 ml 1X PRN PRN INJ SEE COMMENTS; Start 06/17/20 at 22:00; Stop 06/19/20 at 12:00; Status DC Oxytocin 500 ml @ 0 mls/hr CONT PRN IV SEE I/O RECORD; Start 06/17/20 at 22:00; Stop 06/19/20 at 12:00; Status DC Oxytocin 500 ml @ 0 mls/hr CONT PRN PRN IV Post delivery bleeding; Start 06/17/20 at 22:00 Ibuprofen (Motrin) 800 mg PRN Q6HRS PRN PO MODERATE PAIN 4-6; Start 06/17/20 at 22:00; Stop 06/18/20 at 01:41; Status DC Citric Acid/ Sodium Citrate (Bicitra) 30 ml 1X ONCE PO Last administered on 06/17/20at 23:24; Start 06/17/20 at 23:00; Stop 06/17/20 at 23:01; Status DC Cefazolin Sodium (Ancef) 3 gm 1X ONCE IVP ; Start 06/17/20 at 23:00; Stop 06/17/20 at 23:01; Status DC Morphine Sulfate (Morphine Preservative Free) 10 mg STK-MED ONCE .ROUTE ; Start 06/17/20 at 22:23; Stop 06/17/20 at 22:24; Status DC Fentanyl Citrate (Fentanyl 2ml Vial) 100 mcg STK-MED ONCE .ROUTE ; Start 06/17/20 at 22:23; Stop 06/17/20 at 22:24; Status DC Phenylephrine HCl (PHENYLEPHRINE in 0.9% NACL PF) 1 mg STK-MED ONCE IV ; Start 06/17/20 at 22:26; Stop 06/17/20 at 22:26; Status DC Ephedrine Sulfate (ePHEDrine PF IN SALINE SYRINGE) 50 mg STK-MED ONCE IV ; Start 06/17/20 at 22:26; Stop 06/17/20 at 22:26; Status DC Dexamethasone Sodium Phosphate (Decadron) 4 mg STK-MED ONCE .ROUTE ; Start 06/17/20 at 22:26; Stop 06/17/20 at 22:26; Status DC Ondansetron HCl (Zofran) 4 mg STK-MED ONCE .ROUTE ; Start 06/17/20 at 22:26; Stop 06/17/20 at 22:26; Status DC Oxytocin (Pitocin) 10 unit STK-MED ONCE .ROUTE ; Start 06/17/20 at 22:26; Stop 06/17/20 at 22:26; Status DC Oxytocin (Pitocin) 10 unit STK-MED ONCE .ROUTE ; Start 06/17/20 at 22:26; Stop 06/17/20 at 22:26; Status DC Oxytocin (Pitocin) 10 unit STK-MED ONCE .ROUTE ; Start 06/17/20 at 22:26; Stop 06/17/20 at 22:26; Status DC Lidocaine HCl (Lidocaine Pf 2% Vial) 5 ml STK-MED ONCE .ROUTE ; Start 06/18/20 at 01:10; Stop 06/18/20 at 01:10; Status DC Sodium Chloride (Normal Saline Flush) 3 ml QSHIFT PRN IV AFTER MEDS AND BLOOD DRAWS; Start 06/18/20 at 01:45 Oxytocin 500 ml @ 125 mls/hr CONT PRN IV EXCESSIVE POST- BLEEDING; Start 06/18/20 at 01:45; Stop 06/18/20 at 09:44; Status DC Ibuprofen (Motrin) 800 mg PRN Q8HRS PRN PO INFLAMMATION Last administered on 06/21/20at 09:07; Start 06/18/20 at 01:45 Ondansetron HCl (Zofran) 4 mg PRN Q6HRS PRN IV NAUSEA/VOMITING; Start 06/18/20 at 01:45 Docusate Sodium (Colace) 100 mg PRN BID PRN PO CONSTIPATION Last administered on 06/21/20at 07:28; Start 06/18/20 at 01:45 Al Hydroxide/Mg Hydroxide (Mylanta Plus Xs) 30 ml PRN Q4HRS PRN PO HEARTBURN / GAS; Start 06/18/20 at 01:45 Simethicone (Gas-X) 80 mg PRN AFTMEALHC PRN PO GAS / BLOATING; Start 06/18/20 at 01:45 Diphenhydramine HCl (Benadryl Oral Elixir) 12.5 mg PRN Q6HRS PRN PO ITCHING; Start 06/18/20 at 01:45; Stop 06/19/20 at 12:00; Status DC Ferrous Sulfate (Feosol) 325 mg BIDWMEALS PO Last administered on 06/21/20at 07:28; Start 06/18/20 at 08:00 Zolpidem Tartrate (Ambien) 5 mg PRN QHS PRN PO INSOMNIA, MAY REPEAT X1; Start 06/18/20 at 01:45 Oxycodone/ Acetaminophen (Percocet 5/325) 2 tab PRN Q4HRS PRN PO MODERATE PAIN, SEVERE PAIN Last administered on 06/21/20at 07:28; Start 06/18/20 at 01:45 Ketorolac Tromethamine (Toradol 30mg Vial) 30 mg PRN Q6HRS PRN IV INFLAMMAT ION/PAIN Last administered on 06/18/20at 21:38; Start 06/18/20 at 01:45; Stop 06/23/20 at 01:44 Multivitamins (Thera M Plus) 1 tab DAILY PO Last administered on 06/21/20at 07:28; Start 06/18/20 at 09:00 Active Scripts Active Ferrous Sulfate 325 Mg Tablet 1 Tab PO BID Percocet 5-325 Mg Tablet (Oxycodone/Acetaminophen) 1 Each Tablet 1 Tab PO PRN Q6HRS PRN Ibuprofen 800 Mg Tablet 800 Mg PO PRN Q6HRS PRN Colace (Docusate Sodium) 100 Mg Capsule 100 Mg PO BID Zofran (Ondansetron Hcl) 4 Mg Tablet 1 Tab PO Q6HRS Cyclobenzaprine Hcl 5 Mg Tablet 1 Tab PO QHS Metronidazole 500 Mg Tablet 1 Tab PO BID Macrobid 100 Mg Capsule (Nitrofurantoin Monohyd/M-Cryst) 100 Mg Capsule 1 Cap PO BID [Oxycodone Hcl/Acetaminophen] 1 TAB Tablet 2 Tab PO PRN Q4HRS PRN [Ibuprofen] 800 MG Tablet 800 Mg PO PRN Q6HRS PRN Hydrocortisone 1% Ointment (Hydrocortisone/Aloe Vera) 28 Gm Oint...g. 28 Gm TP PRN BID 30 Days rash Prednisone 50 Mg Tablet 50 Mg PO DAILY 5 Days Reported Procardia Xl (Nifedipine) 30 Mg Tab.er.24 30 Mg PO DAILY LAST VITALS Vital Signs Date Time Temp Pulse Resp B/P (MAP) Pulse Ox O2 Delivery O2 Flow Rate FiO2 06/21/20 12:15 98.0 71 18 100/46 (64) 100 Room Air 98.0 HALIE DAVE MD Jun 21, 2020 15:08
[2020-06-21 16:01] VITALS: BP 113/63
--- NOTE | 2020-06-21 16:40 | NUR ---
dismissed to home per w/c to fob in car, with baby in car seat. States her headache is slight with being up ,but better then earlier today. Reminded to drink fluid and take provena off iff seal not good or when battery turns off. Call if any problems and she made her 2 week checkup. Home care instructions given to pt and copy given to her. Pt has prescriptions
--- NOTE | 2020-06-22 18:06 | PATHOLOGY ---
[facility] Accession Number: [id number] . 01 Material submitted: . PART A: fallopian tube - LEFT TUBE. Modifiers: left PART B: fallopian tube - RIGHT TUBE. Modifiers: right . 01 Clinical history: . REPEAT CAESAREAN SECTION BILATERAL TUBAL LIGATION . 02 Diagnosis: A. Left tubal ligation: - Segment of fallopian tube confirmed. . B. Right tubal ligation: - Segment of fallopian tube confirmed. (JPM:amanda; 06/22/2020) S 06/22/2020 1159 Local . 02 Electronically signed: . Ryan Galvez MD, Pathologist NPI- [id number] . 01 Gross description: . A. The specimen is received in formalin, labeled "Larissa Young, left tube". Received is a non-fimbriated segment of fallopian tube measuring 1.8 cm in length by 0.6 cm in diameter. Sectioning reveals a pinpoint to patent lumen. The specimen is submitted entirely in cassette A1. . B. The specimen is received in formalin, labeled "Larissa Young, right tube". Received is a non-fimbriated segment of fallopian tube measuring 1.4 cm in length by 0.6 cm in diameter. Sectioning reveals a pinpoint to patent lumen. The specimen is submitted entirely in cassette B1. (CAA; 06/21/2020) QA/QAC 06/21/2020 1243 Local . 02 Pathologist provided ICD-10: Z30.2 . 02 CPT . 094962, 277084 Specimen Comment: A courtesy copy of this report has been sent to [phone] Specimen Comment: Report sent to Performed at: [address] [place] [address] [address], [place], [place] [id number] MD Bhavesh Raymundo MD Phone: [phone] Performed at: [address] [id number] MD Ryan Galvez MD Phone: [phone]
== END 2020-06-21 16:40 | disposition home or self-care (01) | DRG 785 ==
LOC: OBSVTOIN 18:29 → 3 SO LND 18:29
PROVIDERS: ADMIT Obstetrics & Gynecology; ATTEND Obstetrics & Gynecology
PROC: 10D00Z1 Extraction of Products of Conception, Low, Open Approach (ICD-10-PCS; principal; 2020-06-18)
PROC: 0UB70ZZ Excision of Bilateral Fallopian Tubes, Open Approach (ICD-10-PCS; 2020-06-18)
DX: O76 Abnormality in fetal heart rate and rhythm complicating labor and delivery (principal); O69.81X0 Labor and delivery complicated by cord around neck, without compression, not applicable or unspecified; O99.02 Anemia complicating childbirth; D64.9 Anemia, unspecified; Z20.822 Contact with and (suspected) exposure to COVID-19; O99.214 Obesity complicating childbirth; E66.9 Obesity, unspecified; O89.4 Spinal and epidural anesthesia-induced headache during the puerperium; O34.211 Maternal care for low transverse scar from previous cesarean delivery; Z30.2 Encounter for sterilization; Z37.0 Single live birth; Z3A.37 37 weeks gestation of pregnancy
CPT/HCPCS: 36415; 81001; 85007; 85025; 86850; 86900; 86901; 87426; 88302; J1100; J1885; J2274; J2370; J2405; J2590; J3010; J7120; U0003; G0378